=== PATIENT | female | born 1970 | race Caucasian/White ===

== ENCOUNTER → 2021-06-13 | Outpatient (CLI) | payer OTHER ==
--- NOTE | 2021-06-13 15:23 | KCIC ---
STUDY: MRI of the left shoulder without contrast INDICATION: Left shoulder pain. Limited range of motion. COMPARISON: None. TECHNIQUE: Multiplanar MR imaging of the left shoulder performed without the use of intravenous or in tra-articular contrast. FINDINGS: AC joint: Mild AC joint arthrosis. Small amount of fluid within the subacromial subdeltoid bursa but not to the extent to be considered bursitis. Rotator cuff: No high-grade/full-thickness tear or advanced tendinosis. Muscular bulk is maintained. Labrum: Intact. Long head biceps tendon: Intact and normally located. Mild long head biceps tenosynovitis. Cartilage: No high-grade or full-thickness chondral defect. Bones: Marrow signal is within normal limits. Miscellaneous: Edematous and mildly thickened joint capsule at the axillary recess. Mild periarticula r soft tissue edema. Normal volume joint fluid. Impression: 1. Intact rotator cuff, long head biceps and labrum. 2. Edematous and mildly thickened joint capsule at the axillary recess and mild periarticular soft t issue edema. Given no reported injury the findings could be related to adhesive capsulitis. 3. Mild long head biceps tenosynovitis. Electronically signed by: CONOR FERMIN MD (06/13/2021 3:20 PM) [id number]
== END ==
LOC: KCIC MRI 10:01 → EEVIPCON 10:15
PROVIDERS: ATTEND Preventive Medicine Occupational Medicine
DX: M19.012 Primary osteoarthritis, left shoulder (principal); M65.88 Other synovitis and tenosynovitis, other site
CPT/HCPCS: 73221